=== PATIENT | female | born 1960 | race Asian ===

== ENCOUNTER → 2017-05-22 | Outpatient (CLI) | payer OTHER | LOC: MC.RAD 09:48 | DX: Z12.31 Encounter for screening mammogram for malignant neoplasm of breast (principal) ==

== ENCOUNTER → 2019-06-02 | Outpatient (CLI) | payer BC | LOC: MC.RAD 12:50 | DX: Z12.31 Encounter for screening mammogram for malignant neoplasm of breast (principal) ==

== ENCOUNTER → 2021-05-31 | Outpatient (CLI) | payer BC | LOC: MC.RAD 14:30 | DX: Z12.31 Encounter for screening mammogram for malignant neoplasm of breast (principal) ==

== ENCOUNTER → 2022-08-09 | Outpatient (CLI) | payer BC | LOC: MC.RAD 15:21 | DX: Z12.31 Encounter for screening mammogram for malignant neoplasm of breast (principal) ==

== ENCOUNTER → 2023-11-05 | Outpatient (CLI) | payer BC | LOC: MC.RAD 15:28 | DX: Z12.31 Encounter for screening mammogram for malignant neoplasm of breast (principal) ==